=== PATIENT | male | born 1990 | race Hispanic/Latino ===

== ENCOUNTER 2021-05-19 19:19 | Emergency (ER) | payer SELFPAY ==
[2021-05-19 20:58] LABS: Absolute Lymphocytes (CBC) 1.4 K/uL (0.7-4.9); Basophils % 0.4 % (0-1.3); Hematocrit 46.2 % (39.6-49.0); Lymphocytes % 17.9 % (15.3-44.8); RBC Red Blood Cell Count 5.05 M/uL (4.33-5.43)
[2021-05-19 21:17] LABS: ALT/SGPT 69 U/L (12-78); AST/SGOT 28 U/L (15-37); Albumin 4.5 g/dL (3.4-5.0); Alkaline Phosphatase 63 U/L (45-117); BUN Blood Urea Nitrogen 11 mg/dL (7-18); Bicarbonate 25 mmol/L (21-32); Bilirubin Direct 0.2 mg/dL (0-0.2); Bilirubin Total 0.9 mg/dL (0.2-1.0); Glucose Level 102 mg/dL (74-106); Potassium 3.5 mmol/L (3.5-5.1); Protein, Total 8.3 g/dL (6.4-8.2); Sodium Level 141 mmol/L (136-145); Troponin (Emerg Dept Use Only) < 0.02 ng/mL (0.0-0.045)
--- NOTE | 2021-05-19 21:26 | RAD REPORT ---
EXAM DESCRIPTION: RAD - Chest Single View - 05/19/2021 8:22 pm CLINICAL HISTORY: CHEST PAIN COMPARISON: <Comparisons> FINDINGS: Lines: None. Lungs: No evidence of edema or pneumonia. Pleural: No significant pleural effusions or pneumothorax. Cardiac: The heart size is within normal limits. Bones: No acute fractures. Other: IMPRESSION: No acute cardiopulmonary disease.
[2021-05-19] MEDS ORDERED: IPRATROPIUM BROM 0.5MG/2.5ML ONE (21:36)
[2021-05-19] MEDS ORDERED: ALBUTEROL 2.5 MG/3 ML NEB SOL ONE (21:36)
[2021-05-19 22:29] LABS: Urine Blood Trace-intact (Negative); Urine Glucose Negative (Negative); Urine Protein Negative (Negative)
--- NOTE | 2021-05-19 23:11 | ER ---
Nurse's Notes [facility] Name: Mario Zuniga Jr Age: 30 yrs Sex: Male : 1990 Arrival Date: 05/19/2021 Time: 19:25 Bed 11 Private MD: Diagnosis: Coronavirus infection, unspecified Presentation: 05/19 19:32 Chief complaint: Patient states: Pt states he has had chest congestion for a week and wg been taking decongestant. States he is not short of breath but feels congested and impacting his breathing. Pt states it hasn't gotten worse but isn't going away. Pt denies any fevers, no coughing other than occasional phlegm after quitting smoking, no N/V/D, no CP, SOB, Abd Pain or dizziness. Pt eating and hydrating well. Pt states he does have anxiety and isn't sure if that could be part of this. Chief complaint:. Coronavirus screen: Vaccine status: Patient reports being unvaccinated. Ebola Screen: Patient negative for fever greater than or equal to 101.5 degrees Fahrenheit, and additional compatible Ebola Virus Disease symptoms Patient denies exposure to infectious person. Patient denies travel to an Ebola-affected area in the 21 days before illness onset. Initial Sepsis Screen: Does the patient meet any 2 criteria? No. Patient's initial sepsis screen is negative. Does the patient have a suspected source of infection? No. Patient's initial sepsis screen is negative. Risk Assessment: Do you want to hurt yourself or someone else? Patient reports no desire to harm self or others. Onset of symptoms was May 11, 2021. 19:32 Method Of Arrival: Ambulatory 19:32 Acuity: JUANA 4 Triage Assessment: 19:37 General: Appears in no apparent distress. comfortable, Behavior is cooperative, wg appropriate for age, anxious. Pain: Denies pain. Respiratory: Reports "Congestion" Breath sounds are clear bilaterally. Onset: The symptoms/episode began/occurred 1 week ago, the patient has mild shortness of breath Denies cough, shortness of breath labored breathing, pain with respiration, pain with movement, air hunger. Historical: - Allergies: 19:37 No Known Allergies; wg - Home Meds: 19:37 None [Active]; wg - PMHx: 19:37 Anxiety; wg - Immunization history:: Adult Immunizations up to date. - Social history:: Smoking status: Patient/guardian denies using tobacco, Stopped _ months ago 1. Screenin:20 Abuse screen: denies. Nutritional screening: No deficits noted. wr 23:21 Tuberculosis screening: No symptoms or risk factors identified. wr 23:21 Fall Risk None identified. wr Assessment: 23:20 Reassessment: No changes from previously documented assessment. wr Vital Signs: 19:32 BP 141 / 87; Pulse 80; Resp 18; Temp 98.9; Pulse Ox 100% on R/A; Weight 131.54 kg; wg Height 6 ft. 1 in. (185.42 cm); Pain 0/10; 23:19 BP 127 / 79; Pulse 66; Resp 14; Temp 98.2; Pulse Ox 98% ; wr 23:52 BP 134 / 73; Pulse 73; Resp 17; Temp 68.2; Pulse Ox 98% ; wr 19:32 Body Mass Index 38.26 (131.54 kg, 185.42 cm) ED Course: 19:25 Patient arrived in ED. wm 19:37 Triage completed. wg 19:37 Arm band placed on left wrist. wg 19:43 Keo Laws NP is PHCP. pm1 19:43 Ministerio Nj MD is Attending Physician. pm1 20:21 XRAY Chest (1 view) In Process Unspecified. EDMS 20:50 Troponin (Emerg Dept Use Only) Sent. wr 20:50 Liver (Hepatic) Function Sent. wr 20:50 Basic Metabolic Panel Sent. wr 20:51 CBC with Diff Sent. wr 20:51 Troponin (emerg Dept Use Only) Sent. wr 20:51 Basic Metabolic Panel Sent. wr 20:51 LFT's Sent. wr Administered Medications: 20:30 Drug: Albuterol 2.5 mg Route: Inhalation; wr 20:30 Drug: AtroVENT (ipratropium) Aerosol 0.5 mg Route: Inhalation; wr Outcome: 23:10 Discharge ordered by . pm1 23:53 Patient left the ED. wr Signatures: Dispatcher [employer] EDMS Keo Laws, ANTELMO STOGIE PACKER pm1 Christi Mcadams Lion Orr, RN Prerna Daniel wr
--- NOTE | 2021-05-19 23:11 | EDPHYS ---
Physician Documentation [facility] Name: Mario Zuniga Jr Age: 30 yrs Sex: Male : 1990 Arrival Date: 05/19/2021 Time: 19:25 Bed 11 Private MD: ED Physician Ministerio Nj HPI: 05/19 20:00 This 30 yrs old Male presents to ER via Ambulatory with complaints of pm1 Breathing Difficulty. 20:00 The patient has shortness of breath at rest. Onset: The symptoms/episode began/occurred pm1 1 week(s) ago. The patient's shortness of breath is aggravated by nothing, is alleviated by Walking, movement. Associated signs and symptoms: Pertinent positives: chest pain, productive cough, Pertinent negatives: fever, nausea, vomiting. Severity of symptoms: in the emergency department the symptoms are unchanged. The patient has not experienced similar symptoms in the past. The patient has not recently seen a physician. No improvement with [id number] cough medications. Historical: - Allergies: 19:37 No Known Allergies; wg - Home Meds: 19:37 None [Active]; wg - PMHx: 19:37 Anxiety; wg - Immunization history:: Adult Immunizations up to date. - Social history:: Smoking status: Patient/guardian denies using tobacco, Stopped _ months ago 1. ROS: 20:00 Constitutional: Negative for fever, chills, and weight loss. pm1 20:00 Abdomen/GI: Negative for abdominal pain, nausea, vomiting, diarrhea, and constipation, Back: Negative for injury and pain, MS/Extremity: Negative for injury and deformity, Skin: Negative for injury, rash, and discoloration. 20:00 Cardiovascular: Positive for chest pain, with cough, Negative for edema. 20:00 Respiratory: Positive for cough, shortness of breath, at rest. 20:00 All other systems are negative. Exam: 20:00 Constitutional: This is a well developed, well nourished patient who is awake, alert, pm1 and in no acute distress. Head/Face: Normocephalic, atraumatic. 20:00 Back: No spinal tenderness. No costovertebral tenderness. Full range of motion. Skin: Warm, dry with normal turgor. Normal color with no rashes, no lesions, and no evidence of cellulitis. MS/ Extremity: Pulses equal, no cyanosis. Neurovascular intact. Full, normal range of motion. 20:00 ENT: Exam is negative for acute changes, Mouth: no acute changes, Lips: normal, moist, Oral mucosa: normal, pink and intact, moist. 20:00 Cardiovascular: Rate: normal, Rhythm: regular, Pulses: no pulse deficits are appreciated, Edema: is not appreciated. 20:00 Respiratory: Exam negative for acute changes, respiratory distress, shortness of breath. 20:00 Abdomen/GI: Exam negative for acute changes, Inspection: obese Palpation: abdomen is soft and non-tender, in all quadrants. 20:00 Neuro: Exam negative for acute changes, Orientation: is normal, Mentation: is normal, Motor: is normal, moves all fours, Sensation: no obvious gross deficits. Vital Signs: 19:32 BP 141 / 87; Pulse 80; Resp 18; Temp 98.9; Pulse Ox 100% on R/A; Weight 131.54 kg; wg Height 6 ft. 1 in. (185.42 cm); Pain 0/10; 23:19 BP 127 / 79; Pulse 66; Resp 14; Temp 98.2; Pulse Ox 98% ; wr 23:52 BP 134 / 73; Pulse 73; Resp 17; Temp 68.2; Pulse Ox 98% ; wr 19:32 Body Mass Index 38.26 (131.54 kg, 185.42 cm) wg MDM: 19:44 Patient medically screened. [facility] 23:05 Data reviewed: vital signs. Data interpreted: Pulse oximetry: on room air is 100 %. pm1 Interpretation: normal. 23:09 Counseling: I had a detailed discussion with the patient and/or guardian regarding: the pm1 historical points, exam findings, and any diagnostic results supporting the discharge/admit diagnosis, lab results, radiology results, the need for outpatient follow up, to return to the emergency department if symptoms worsen or persist or if there are any questions or concerns that arise at home. 23:11 ED course: PMPAware reviewed. pm1 05/19 19:58 Order name: Basic Metabolic Panel pm1 05/19 19:58 Order name: CBC with Diff; Complete Time: 21:04 pm1 05/19 19:58 Order name: LFT's pm1 05/19 19:58 Order name: Troponin (emerg Dept Use Only) pm1 05/19 19:58 Order name: XRAY Chest (1 view); Complete Time: 21:30 pm1 05/19 19:59 Order name: Basic Metabolic Panel; Complete Time: 21:24 EDMS 05/19 19:59 Order name: Liver (Hepatic) Function; Complete Time: 21:24 EDMS 05/19 19:59 Order name: Troponin (Emerg Dept Use Only); Complete Time: 21:24 EDMS 05/19 22:29 Order name: Urine Dipstick-Ancillary; Complete Time: 22:30 EDMS 05/19 22:56 Order name: SARS-COV-2 RT PCR; Complete Time: 23:02 EDMS 05/19 19:58 Order name: EKG; Complete Time: 19:59 pm1 05/19 19:58 Order name: Cardiac monitoring; Complete Time: 20:51 pm1 05/19 19:58 Order name: EKG - Nurse/Tech; Complete Time: 22:55 pm1 05/19 19:58 Order name: IV Saline Lock; Complete Time: 20:51 pm1 05/19 19:58 Order name: Labs collected and sent; Complete Time: 20:51 pm1 05/19 19:58 Order name: O2 Per Protocol; Complete Time: 20:51 pm1 05/19 19:58 Order name: O2 Sat Monitoring; Complete Time: 20:51 pm1 Administered Medications: 20:30 Drug: Albuterol 2.5 mg Route: Inhalation; wr 20:30 Drug: AtroVENT (ipratropium) Aerosol 0.5 mg Route: Inhalation; wr Disposition: 05/20 06:50 Co-signature as Attending Physician, Ministerio Nj MD I agree with the assessment and crystal plan of care. Disposition Summary: 05/19/21 23:10 Discharge Ordered Location: Home pm1 Problem: new pm1 Symptoms: have improved pm1 Condition: Stable pm1 Diagnosis - Coronavirus infection, unspecified pm1 Followup: pm1 - With: Emergency Department - When: As needed - Reason: Worsening of condition Followup: pm1 - With: Private Physician - When: 2 - 3 days - Reason: Recheck today's complaints, Continuance of care, Re-evaluation by your physician Discharge Instructions: - Discharge Summary Sheet pm1 - COVID-19 pm1 - COVID-19 Frequently Asked Questions pm1 - 10 Things You Can Do to Manage Your COVID-19 Symptoms at Home - [facility] pm1 - COVID-19: Quarantine vs. Isolation - [facility] pm1 Forms: - Medication Reconciliation Form pm1 - Thank You Letter pm1 - Antibiotic Education pm1 - Prescription Opioid Use pm1 Prescriptions: - Guaifenesin AC 10-100 mg/5 mL Oral Liquid - take 10 milliliters by ORAL route every 4 hours As needed; 240 milliliter; pm1 Refills: 0, Product Selection Permitted Signatures: Dispatcher [employer] EDMS Ministerio Nj, Keo Gaston MD, cha, ELECTRIC WELL LOGGING OPERATOR ELECTRIC WELL LOGGING OPERATOR pm1 Lion Orr, ADAL wg Prerna Daniel wr Corrections: (The following items were deleted from the chart) 05/19 20:47 19:59 CORONAVIRUS+MR.LAB.BRZ ordered. EDMS EDMS 20:48 19:59 Influenza Screen (A \T\ B)+BA.LAB.BRZ ordered. EDMS EDMS
[2021-05-20 00:34] VITALS: BP 141/87; TEMP 98.9; O2SAT 100
--- NOTE | 2021-05-20 18:09 | EKG ---
Test Date: 2021-05-19 Test Time: 21:00:16 Vehicle Safety Inspector: MILKA MEASUREMENT RESULTS: Intervals: Rate: 68 TX: 104 QRSD: 100 QT: 402 QTc: 427 [place]: P: 12 TX: 104 QRS: -6 T: 64 INTERPRETIVE STATEMENTS: Sinus rhythm with short TX Otherwise normal ECG No previous ECG available for comparison Electronically Signed On 05-20-21 18:05:53 CDT by Adonis Walker
== END 2021-05-19 23:53 | disposition home or self-care (01) ==
LOC: ER 19:19
DX: U07.1 COVID-19 (principal)
CPT/HCPCS: 36415; 71045; 80048; 80076; 81003; 84484; 85025; 93005; 99284; U0003

== ENCOUNTER 2022-02-20 19:01 | Emergency (ER) | payer SELFPAY ==
--- NOTE | 2022-02-20 20:39 | RAD REPORT ---
EXAM DESCRIPTION: Kimberlyn Single View02/20/2022 8:20 pm CLINICAL HISTORY: Chest pain COMPARISON: 2020 FINDINGS: The lungs appear clear of acute infiltrate. The heart is normal size IMPRESSION: No acute abnormalities displayed
[2022-02-20 22:19] LABS: Absolute Lymphocytes (CBC) 1.2 K/uL (0.7-4.9); Lymphocytes % 22.5 % (15.3-44.8); MCV 89.5 fL (80-100); MPV 11.3 fL (7.6-11.3); RBC Red Blood Cell Count 5.02 M/uL (4.33-5.43)
[2022-02-20 22:32] LABS: Troponin High Sensitivity 5.9 pg/mL (<58.9)
[2022-02-20 22:33] LABS: Potassium 3.5 mmol/L (3.5-5.1)
--- NOTE | 2022-02-20 22:38 | ER ---
Nurse's Notes [facility] Name: Mario Zuniga Jr Age: 31 yrs Sex: Male : 1990 Arrival Date: 02/20/2022 Time: 19:15 Bed 2 Private MD: Diagnosis: Coronavirus infection, unspecified Presentation: 02/20 19:20 Chief complaint: Patient states: "My chest hurts, and I have a had cough. I had asthma tw5 in the past and it just kind of feels like that. Like really tight. It hurt more when I am just resting, but if I get up and move around the pain eases.". Coronavirus screen: Vaccine status: Patient reports being unvaccinated. Ebola Screen: Patient negative for fever greater than or equal to 101.5 degrees Fahrenheit, and additional compatible Ebola Virus Disease symptoms Patient denies exposure to infectious person. Patient denies travel to an Ebola-affected area in the 21 days before illness onset. Initial Sepsis Screen: Does the patient meet any 2 criteria? No. Patient's initial sepsis screen is negative. Does the patient have a suspected source of infection? No. Patient's initial sepsis screen is negative. Risk Assessment: Do you want to hurt yourself or someone else? Patient reports no desire to harm self or others. Onset of symptoms was February 16, 2022 at 08:00. 19:20 Method Of Arrival: Ambulatory tw5 19:20 Acuity: JUANA 3 tw5 Triage Assessment: 19:24 General: Appears in no apparent distress. obese, Behavior is calm, cooperative, tw5 appropriate for age. Pain: Complains of pain in chest Pain currently is 8 out of 10 on a pain scale. Respiratory: Reports shortness of breath at rest Onset: The symptoms/episode began/occurred gradually, the patient has mild shortness of breath. Historical: - Allergies: 19:24 No Known Allergies; tw5 - Home Meds: 19:24 None [Active]; tw5 - PMHx: 19:24 Anxiety; tw5 - PSHx: 19:24 None; tw5 - Immunization history:: Flu vaccine is not up to date. - Social history:: Smoking status: Patient/guardian denies using tobacco, Stopped _ months ago 1. Screenin:26 Abuse screen: Denies threats or abuse. Denies injuries from another. Nutritional tw5 screening: No deficits noted. Tuberculosis screening: No symptoms or risk factors identified. Fall Risk None identified. Assessment: 21:49 General: Appears in no apparent distress. Behavior is calm, cooperative. Neuro: Level kd3 of Consciousness is awake, alert, obeys commands, Oriented to person, place, time, situation. Cardiovascular: Rhythm is regular. Respiratory: Airway is patent Trachea midline Respiratory effort is even, unlabored, Breath sounds are clear. Vital Signs: 19:20 BP 142 / 89; Pulse 73; Resp 18; Temp 98.3; Pulse Ox 98% on R/A; Weight 136.08 kg; tw5 Height 6 ft. 1 in. (185.42 cm); Pain 8/10; 21:14 BP 149 / 92; Pulse 90; Resp 19; Pulse Ox 97% on R/A; Pain 4/10; eh3 19:20 Body Mass Index 39.58 (136.08 kg, 185.42 cm) tw5 ED Course: 19:15 Patient arrived in ED. am2 19:24 Triage completed. tw5 19:24 Arm band placed on right wrist. tw5 19:34 Wendy Moss FNP-C is PHCP. kb 19:34 Ministerio Nj MD is Attending Physician. kb 20:22 Chest Single View XRAY In Process Unspecified. EDMS 21:27 Valeri Hart, RN is Primary Nurse. ld1 21:49 Inserted saline lock: 20 gauge in left antecubital area, using aseptic technique. Blood kd3 collected. 21:50 Patient has correct armband on for positive identification. kd3 22:56 No provider procedures requiring assistance completed. IV discontinued, intact, ld1 bleeding controlled, No redness/swelling at site. Administered Medications: 22:56 Drug: Tessalon Perle (benzonatate) 100 mg Route: PO; ld1 Medication: 21:50 VIS not applicable for this client. kd3 Outcome: 22:37 Discharge ordered by . kb 22:57 Discharged to home ambulatory. ld1 22:57 Condition: stable 22:57 Discharge instructions given to patient, Instructed on discharge instructions, follow up and referral plans. medication usage, Demonstrated understanding of instructions, follow-up care, medications, Prescriptions given X 2. 22:57 Patient left the ED. ld1 Signatures: Dispatcher [employer] Wendy De Leon, DISTRIBUTION SPECIALIST-C DISTRIBUTION SPECIALIST-Ckb Fanny Maxwell am2 Valeri Hart, RN RN ld1 Bruna Balderrama tw5 Jessica Esquivel RN RN kd3 Manuel, Francisca 3
--- NOTE | 2022-02-20 22:38 | EDPHYS ---
Physician Documentation [facility] Name: Mario Zuniga Jr Age: 31 yrs Sex: Male : 1990 Arrival Date: 02/20/2022 Time: 19:15 Bed 2 Private MD: ED Physician Ministerio Nj HPI: 02/21 00:40 This 31 yrs old Male presents to ER via Ambulatory with complaints of Cough, kb Breathing Difficulty, Anxiety. 00:40 The patient or guardian reports cough, that is intermittent, described as mild. The kb patient has not experienced similar symptoms in the past. The patient has not recently seen a physician. 00:41 Onset: The symptoms/episode began/occurred 4 day(s) ago. Severity of symptoms: At their kb worst the symptoms were moderate, in the emergency department the symptoms are unchanged. Modifying factors: The symptoms are alleviated by nothing, the symptoms are aggravated by nothing. Associated signs and symptoms: Pertinent positives: chest pain, Pertinent negatives: diarrhea, ear ache, fever, nausea, rhinorrhea, sore throat, vomiting. Pt reports cough, congestion, chest tightness that started 4 days ago.. Historical: - Allergies: 02/20 19:24 No Known Allergies; tw5 - Home Meds: 19:24 None [Active]; tw5 - PMHx: 19:24 Anxiety; tw5 - PSHx: 19:24 None; tw5 - Immunization history:: Flu vaccine is not up to date. - Social history:: Smoking status: Patient/guardian denies using tobacco, Stopped _ months ago 1. ROS: 02/21 00:40 Constitutional: Negative for fever, chills, and weight loss. kb Cardiovascular: Positive for chest pain, Negative for edema, orthopnea, palpitations, paroxysmal nocturnal dyspnea. Respiratory: Positive for cough, Negative for dyspnea on exertion, hemoptysis, orthopnea, pleurisy, shortness of breath, sputum production, wheezing. All other systems are negative. Exam: 00:40 Constitutional: This is a well developed, well nourished patient who is awake, alert, kb and in no acute distress. Head/Face: Normocephalic, atraumatic. ENT: Moist Mucous membranes Cardiovascular: Regular rate and rhythm with a normal S1 and S2. No gallops, murmurs, or rubs. No pulse deficits. Respiratory: Respirations even and unlabored. No increased work of breathing. Talking in full sentences Skin: Warm, dry with normal turgor. Normal color. MS/ Extremity: Pulses equal, no cyanosis. Neurovascular intact. Full, normal range of motion. Neuro: Awake and alert, GCS 15, oriented to person, place, time, and situation. Moves all extremities. Normal gait. Psych: Awake, alert, with orientation to person, place and time. Behavior, mood, and affect are within normal limits. Vital Signs: 02/20 19:20 BP 142 / 89; Pulse 73; Resp 18; Temp 98.3; Pulse Ox 98% on R/A; Weight 136.08 kg; tw5 Height 6 ft. 1 in. (185.42 cm); Pain 8/10; 21:14 BP 149 / 92; Pulse 90; Resp 19; Pulse Ox 97% on R/A; Pain 4/10; eh3 19:20 Body Mass Index 39.58 (136.08 kg, 185.42 cm) tw5 MDM: 19:51 Patient medically screened. kb 02/21 00:39 Data reviewed: vital signs, nurses notes. Data interpreted: Pulse oximetry: on room air kb is 97 %. Interpretation: normal. Counseling: I had a detailed discussion with the patient and/or guardian regarding: the historical points, exam findings, and any diagnostic results supporting the discharge/admit diagnosis, lab results, radiology results, the need for outpatient follow up, a family practitioner, to return to the emergency department if symptoms worsen or persist or if there are any questions or concerns that arise at home. 02/20 19:34 Order name: COVID-19 SARS RT PCR (Document "Date of Onset" if Symptomatic); Complete kb Time: 21:31 02/20 19:34 Order name: Flu; Complete Time: 21:30 kb 02/20 20:27 Order name: Strep; Complete Time: 21:30 kb 02/20 20:27 Order name: CBC with Diff; Complete Time: 22:30 kb 02/20 20:27 Order name: Basic Metabolic Panel; Complete Time: 22:37 kb 02/20 20:27 Order name: Troponin HS; Complete Time: 22:37 kb 02/20 19:33 Order name: Chest Single View XRAY; Complete Time: 20:45 kb 02/20 21:21 Order name: Throat Culture EDMS Administered Medications: 02/20 22:56 Drug: Tessalon Perle (benzonatate) 100 mg Route: PO; ld1 Disposition Summary: 02/20/22 22:37 Discharge Ordered Location: Home kb Condition: Stable kb Diagnosis - Coronavirus infection, unspecified kb Followup: kb - With: Emergency Department - When: As needed - Reason: Worsening of condition Followup: kb - With: Private Physician - When: 2 - 3 days - Reason: Recheck today's complaints, Continuance of care, Re-evaluation by your physician Discharge Instructions: - Discharge Summary Sheet kb - Viral Respiratory Infection, [id number] kb - COVID-19 kb Forms: - Medication Reconciliation Form kb - Thank You Letter kb - Antibiotic Education kb - Prescription Opioid Use kb Prescriptions: - albuterol sulfate 90 mcg/actuation Inhalation HFA aerosol inhaler - inhale 2 puff by INHALATION route every 4-6 hours As needed; 1 Inhaler; kb Refills: 0, Product Selection Permitted - Tessalon Perles 100 mg Oral Capsule - take 1 capsule by ORAL route every 8 hours As needed; 15 capsule; Refills: 0, kb Product Selection Permitted Signatures: Dispatcher [employer] EDWendy Epps FNP-C FNP-Valeri Dillon RN RN ld1 Bruna Balderrama tw5
[2022-02-20] MEDS ORDERED: BENZONATATE 100 MG CAP PO ONE (23:01)
[2022-02-21 00:20] VITALS: TEMP 98.3
[2022-02-21 00:22] VITALS: BP 149/92; O2SAT 97
== END 2022-02-20 22:57 | disposition home or self-care (01) ==
LOC: ER 19:01
DX: U07.1 COVID-19 (principal)
CPT/HCPCS: 36415; 71045; 80048; 84484; 85025; 87070; 87081; 87804; U0003